=== PATIENT | male | born 1990 | race Caucasian/White ===

== ENCOUNTER 2020-02-13 18:15 | Emergency (ER) | payer OTHER, SELFPAY ==
[2020-02-13 18:29] VITALS: BP 134/96; PULSE 80; RESP 16; TEMP 36.8; O2SAT 98
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
== END 2020-02-13 19:15 | disposition home or self-care (01) ==
PROVIDERS: Emergency Provider Nurse Practitioner Family
DX: L24.2 Irritant contact dermatitis due to solvents (principal)
CPT/HCPCS: 99213; G0463

== ENCOUNTER 2020-02-15 12:35 | Emergency (ER) | payer OTHER, SELFPAY ==
[2020-02-15 13:28] VITALS: BP 128/91; PULSE 83; RESP 20; TEMP 36.7; O2SAT 98
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
== END 2020-02-15 14:48 | disposition home or self-care (01) ==
PROVIDERS: Emergency Provider Nurse Practitioner Family
DX: L25.9 Unspecified contact dermatitis, unspecified cause (principal)
CPT/HCPCS: 99211; G0463

== ENCOUNTER 2020-07-29 17:50 | Emergency (ER) | payer MEDICAID, SELFPAY ==
[2020-07-29 17:59] VITALS: BP 126/81; PULSE 88; RESP 20; TEMP 37; O2SAT 99
--- NOTE | 2020-07-29 18:00 | ED.EAR ---
HPI - Ear Problem General Chief complaint: Ear Stated complaint: left ear pain/pressure Time Seen by Provider: 07/29/20 18:00 Source: patient Mode of arrival: ambulatory Limitations: no limitations History of Present Illness HPI Narrative: Jarad Ruggiero is a 30 yo male with a hx of multiple strep throats comes to express care with c/o L ear pain and sore throat. No fever. Started last night; no fever. Has been working outside all day, is tachycardic and says is hydrated Denies nausea vomiting diarrhea, feeling fatigue or myalgias Related Data Allergies Allergy/AdvReac Type Severity Reaction Status Date / Time No Known Allergies Allergy Verified 07/29/20 18:01 Review of Systems Review of Systems: Narrative: CONSTITUTIONAL: Denies fever, chills, sweats. EYES: Denies visual changes, redness, discharge. ENT: Denies rhinorrhea, congestion, has sore throat, left otalgia. CARDIOVASCULAR: Denies chest pain, palpitations, edema. RESPIRATORY: Denies dyspnea, wheezing, cough GASTROINTESTINAL: Denies abdominal pain, nausea, vomiting, diarrhea. GENITOURINARY: Denies dysuria, hematuria, abnormal discharge SKIN: Denies rash or itching. NEUROLOGIC: Denies numbness, or focal weakness. PSYCHIATRIC: Denies anxiety or depression. PMFSH Past Medical History Medical History History of strep sore throat No significant past medical history Surgical History Surgical History History of tonsillectomy Family History Family History Mother Hypertension Social History Social History Smoking status: Never smoker Alcohol intake: never Substance use: never Gender identity (if verbalized by the patient): Male Comments At time of signature, I agree with nursing past medical, surgical, social and family history. There is no relevant family history pertinent to the presenting complaint. Exam Narrative: Exam Narrative: GENERAL: This is a well-nourished, well-developed patient, in mild distress. HEAD: normocephalic, atraumatic. EYES: Sclera clear/white. Vision is grossly intact. EARS: External ears normal, R auditory canal clear and without drainage, L canal erythema, TMs normal without perforation. Hearing grossly intact. NOSE: External nose normal without nasal discharge, nares with redness, no rhinorrhea. THROAT: Mucous membranes moist, posterior pharynx erythema NECK: Neck supple, n tender left down trachea CARDIOVASCULAR: Tachycardic rate and rhythm without murmurs, gallops, or rubs. RESPIRATORY: Clear to auscultation. Breath sounds equal bilaterally. No wheezes, rales, or rhonchi. GASTROINTESTINAL: Abdomen soft, non-tender, SKIN: warm, intact with no suspicious lesions or rash, good texture and turgor. NEURO: awake, alert, and oriented to person, place and time. There were no obvious focal neurologic abnormalities. Steady gait EXTREMITIES: Normal range of motion. BACK: Nontender without deformity Course Course Emergency Course: Strep test Started on ear drops, Zyrtec, prednisone. Follow-up with PCP Vital Signs Vital signs: Vital Signs Temperature 98.6 F 07/29/20 17:59 Pulse Rate 88 07/29/20 17:59 Respiratory Rate 07/29/20 17:59 Blood Pressure 126/81 07/29/20 17:59 Pulse Oximetry 99 07/29/20 17:59 Temperature 98.6 F 07/29/20 17:59 Pulse Rate 88 07/29/20 17:59 Respiratory Rate 07/29/20 17:59 Blood Pressure 126/81 07/29/20 17:59 Pulse Oximetry 99 07/29/20 17:59 Medical Decision Making Differential Diagnosis Differential Diagnosis: Strep versus pharyngitis versus left otitis media Vital Signs Vital Signs: Vital Signs Temperature 98.6 F 07/29/20 17:59 Pulse Rate 88 07/29/20 17:59 Respiratory Rate 07/29/20 17:59 Blood Pressure 126/81
== END 2020-07-29 18:22 | disposition home or self-care (01) ==
PROVIDERS: Emergency Provider Nurse Practitioner
DX: H66.002 Acute suppurative otitis media without spontaneous rupture of ear drum, left ear (principal); J02.9 Acute pharyngitis, unspecified
CPT/HCPCS: 87081; 87880; 99213; G0463

== ENCOUNTER 2021-04-16 08:39 | Emergency (ER) | payer OTHER, SELFPAY ==
--- NOTE | ~2021-04-16 | XR_ITS ---
XR abdomen/kub 1V DATE: 04/16/2021 09:39 INDICATION: Abdominal pain since 04/13/2021 TECHNIQUE: AP projection, 2 views COMPARISON: None FINDINGS: There is radiopaque material scattered within the normal size appendix and colon. There is no evidence of appendicitis or bowel obstruction. The psoas shadows are intact. No visceromegaly is evident. No significant abnormal calcification is n oted. Included skeletal structures are unremarkable. IMPRESSION: No significant abnormality Reviewed, dictated and finalized at [facility]. Reviewed, dictated and finalized at [facility]. IMPRESSION: No significant abnormality
[2021-04-16 08:44] VITALS: BP 127/97; PULSE 74; RESP 18; TEMP 36.6; O2SAT 100
--- NOTE | 2021-04-16 09:09 | ED.GENADULT ---
HPI - General Adult General Chief complaint: Abdominal Pain Stated complaint: abdominal pain Time Seen by Provider: 04/16/21 09:10 Source: patient and RN notes reviewed Mode of arrival: ambulatory Limitations: no limitations History of Present Illness HPI narrative: 31-year-old male presents with complaints of rectal bleeding, black tarry stools, and diffuse abdominal cramping for past 3 days. Jarad reports symptoms started on Friday, April 13, 2021 with daily increasing abdominal pain. Pepto-Bismol 2 tablets on Friday, April 16, 2021 approximate 13:30/20:00 without relief. Complains of 4-5 black tarry stools over the past 3 days. No bright red blood in toilet are on toilet paper after wiping. LMB today, black tarry stool. Denies foul smell. Denies diarrhea or constipation. Denies history of gastrointestinal bleeding, hemorrhoids, inflammatory bowel disease, or rectal polyps. Denies family history of rectal bleeding. Denies rectal pain or rectal trauma. Denies eating dark-colored foods, using iron supplement, fever, or weight loss, and tenesmus. Denies nausea or vomiting. Tolerating po intake well, last had solids on 04/15/21 approximate 18:00 and orange juice today approximate 07:40. Denies dysuria or hematuria. Remains active. The patient reports he have not been diagnosed with COVID-19. The patient reports he is not waiting for the results of a COVID-19 lab test. The patient reports he do not have chills, weakness, or fatigue. The patient reports he do not have a new or worsening cough or shortness of breath. Denies chest pain. The patient reports he do not have any rhinorrhea, congestion, loss of taste or smell, or sore throat. Denies recent traveling. Denies concerns for COVID-19 or exposures been home with limited outdoor exposure except for essential household needs and return home. At this time, patient is not suspected of having COVID-19. Some parts of this dictation were generated by voice recognition software and may contain typographical and/or grammatical inaccuracies. Related Data Home Medications Medication Instructions Recorded Confirmed No Home Medications 04/16/21 04/16/21 Allergies Allergy/AdvReac Type Severity Reaction Status Date / Time No Known Allergies Allergy Verified 04/16/21 09:05 Review of Systems Review of Systems: Narrative: CONSTITUTIONAL: Denies fever, chills, sweats. EYES: Denies visual changes, redness, discharge. ENT: Denies rhinorrhea, congestion, sore throat, otalgia. CARDIOVASCULAR: Denies chest pain, palpitations, edema. RESPIRATORY: Denies dyspnea, wheezing, cough. GASTROINTESTINAL: Complains of diffused abdominal pain, black tarry stools. Denies nausea, vomiting, diarrhea. GENITOURINARY: Denies dysuria, hematuria, abnormal discharge. SKIN: Denies rash or itching. MUSCULOSKELETAL: Denies acute back pain or myalgia. NEUROLOGIC: Denies numbness or focal weakness. PSYCHIATRIC: Denies anxiety or depression. All systems reviewed & are unremarkable except as noted in HPI and below. [facility] Past Medical History Medical History (Updated 04/17/21 @ 00:01 by Janett Mckenzie) History of strep sore throat No significant past medical history Surgical History Surgical History History of tonsillectomy Family History Family History Mother Hypertension Father Alive and well Social History Social History Smoking status: Never smoker Tobacco type: cigarettes Second hand tobacco smoke exposure: No Alcohol intake: former Alcohol use details: no beer in 3 months Substance use: never Living arrangements: with family Occupation/Education: unemployed Gender identity (if verbalized by the patient): Male Comments At time of signature, agree with nurse past medical, surgical, social, a
== END 2021-04-16 10:10 | disposition home or self-care (01) ==
PROVIDERS: Emergency Provider Nurse Practitioner Family
DX: K62.5 Hemorrhage of anus and rectum (principal); R10.30 Lower abdominal pain, unspecified
CPT/HCPCS: 74018; 99213; G0463

== ENCOUNTER 2021-07-24 08:21 | Emergency (ER) | payer OTHER, SELFPAY ==
[2021-07-24 08:26] VITALS: BP 131/94; PULSE 88; RESP 14; TEMP 36.7; O2SAT 98
--- NOTE | 2021-07-24 08:27 | ED.URI ---
HPI - URI/Sore Throat General Chief Complaint: Upper Respiratory Infection Stated Complaint: sore throat and ear pain Time Seen by Provider: 07/24/21 08:27 Source: patient and RN notes reviewed History of Present Illness HPI Narrative: Patient is a 31-year-old male who presents the urgent care with complaints of sore throat and bilateral ear pain since Friday. Patient has not taken anything [id number] for his symptoms or his pain. Denies of any known contact with strep or Covid. States that he has had his tonsils removed but has had strep yearly since then. Patient denies of any fever, chills, nausea, vomiting. No other acute complaints. No acute distress noted. Patient aware of the plan of care. Some parts of this dictation were generated by voice recognition software and may contain typographical and/or grammatical inaccuracies. Related Data Home Medications Medication Instructions Recorded Confirmed No Home Medications 04/16/21 07/24/21 Allergies Allergy/AdvReac Type Severity Reaction Status Date / Time No Known Allergies Allergy Verified 07/24/21 08:31 Review of Systems Review of Systems: CONSTITUTIONAL: Denies fever, chills, or sweats. EYES: Denies visual changes, redness, or discharge. ENT: reports of sore throat and bilateral otalgia. CARDIOVASCULAR: Denies chest pain, palpitations, or edema. RESPIRATORY: Denies cough or dyspnea. GASTROINTESTINAL: Denies abdominal pain, nausea, vomiting, or diarrhea. GENITOURINARY: Denies dysuria or hematuria. SKIN: Denies rash or itching. MUSCULOSKELETAL: Denies back pain, joint pain, or myalgia. NEUROLOGIC: Denies headache, numbness, or weakness. All other systems reviewed are negative, except as documented in HPI. [facility] Past Medical History Medical History (Updated 07/24/21 @ 08:46 by KATHIA Pratt) History of strep sore throat No significant past medical history Surgical History Surgical History History of tonsillectomy Family History Family History Mother Hypertension Father Alive and well Social History Social History Smoking status: Never smoker Tobacco type: cigarettes Second hand tobacco smoke exposure: No Alcohol intake: former Alcohol use details: no beer in 3 months Substance use: never Gender identity (if verbalized by the patient): Male Comments At the time of my signature, I reviewed and agree with the nursing past medical, surgical, social, and family history. There is no relevant family history pertinent to the patient complaint. Exam Narrative: GENERAL: This is a well-nourished, well-developed patient, in no apparent distress. HEAD: normocephalic, atraumatic. EYES: PERRL. Sclera clear/white. Vision is grossly intact. EARS: External ears normal, auditory canals clear and without drainage, TMs normal without perforation. Hearing grossly intact. NOSE: External nose normal with no obvious nasal discharge, nares without redness, no rhinorrhea. THROAT: Mucous membranes moist, posterior pharynx clear. mild post nasal drainage. Tonsils NECK: Neck supple, non-tender without lymphadenopathy CARDIOVASCULAR: Regular rate and rhythm without murmurs, gallops, or rubs. RESPIRATORY: Clear to auscultation. Breath sounds equal bilaterally. No wheezes, rales, or rhonchi. SKIN: warm, intact with no suspicious lesions or rash, good texture and turgor. NEURO: awake, alert, and oriented to person, place and time. There were no obvious focal neurologic abnormalities. EXTREMITIES: No clubbing, cyanosis, or edema. Course Vital Signs Vital signs: Vital Signs Temperature 98.1 F 07/24/21 08:26 Pulse Rate 88 07/24/21 08:26 Respiratory Rate 14 07/24/21 08:26 Blood Pressure 131/94 H 07/24/21 08:26 Pulse Oximetry 98 07/24/21 08:26 [place]
== END 2021-07-24 08:50 | disposition home or self-care (01) ==
PROVIDERS: Emergency Provider Nurse Practitioner Family
DX: J02.9 Acute pharyngitis, unspecified (principal)
CPT/HCPCS: 87081; 87880; 99213; G0463

== ENCOUNTER 2021-12-27 08:14 | Emergency (ER) | payer OTHER, SELFPAY ==
--- NOTE | 2021-12-27 08:20 | ED.URI ---
HPI - URI/Sore Throat General Chief Complaint: Upper Respiratory Infection Stated Complaint: sinus infection and sore throat Time Seen by Provider: 12/27/21 08:20 Source: patient and RN notes reviewed History of Present Illness HPI Narrative: Patient is a 31-year-old male who presents the urgent care with complaints of sinus congestion, sore throat and postnasal drainage. Patient states that it started 4 days ago. States that 3 days ago he had a negative Covid test when his symptoms started. Patient denies any fever, chills, nausea or vomiting. Denies of any known exposure to Covid. States that his father, whom he lived with as of this past week, was diagnosed with strep. No other acute complaints. No acute distress noted. Patient read the plan of care. Some parts of this dictation were generated by voice recognition software and may contain typographical and/or grammatical inaccuracies. Related Data Allergies Allergy/AdvReac Type Severity Reaction Status Date / Time No Known Allergies Allergy Verified 12/27/21 08:29 Review of Systems Review of Systems: CONSTITUTIONAL: Denies fever, chills, or sweats. EYES: Denies visual changes, redness, or discharge. ENT: Reports of postnasal drainage, sinus congestion and sore throat CARDIOVASCULAR: Denies chest pain, palpitations, or edema. RESPIRATORY: Denies cough or dyspnea. GASTROINTESTINAL: Denies abdominal pain, nausea, vomiting, or diarrhea. GENITOURINARY: Denies dysuria or hematuria. SKIN: Denies rash or itching. MUSCULOSKELETAL: Denies back pain, joint pain, or myalgia. NEUROLOGIC: Denies headache, numbness, or weakness. All other systems reviewed are negative, except as documented in HPI. [facility] Past Medical History Medical History (Updated 12/27/21 @ 08:35 by KATHIA Pratt) History of strep sore throat No significant past medical history Surgical History Surgical History History of tonsillectomy Family History Family History Mother Hypertension Father Alive and well Social History Social History Smoking status: Never smoker Tobacco type: cigarettes Second hand tobacco smoke exposure: No Alcohol intake: former Alcohol use details: no beer in 3 months Substance use: never Gender identity (if verbalized by the patient): Male Comments At the time of my signature, I reviewed and agree with the nursing past medical, surgical, social, and family history. There is no relevant family history pertinent to the patient complaint. Exam Narrative: GENERAL: This is a well-nourished, well-developed patient, in no apparent distress. HEAD: normocephalic, atraumatic. Frontal sinus tenderness EYES: PERRL. Sclera clear/white. Vision is grossly intact. EARS: External ears normal, auditory canals clear and without drainage, TMs normal without perforation. Hearing grossly intact. NOSE: External nose normal with no obvious nasal discharge, nares without redness, no rhinorrhea. THROAT: Mucous membranes moist. Moderate erythema noted to posterior pharynx with moderate postnasal drainage without exudate or ulceration NECK: Neck supple, non-tender without lymphadenopathy CARDIOVASCULAR: Regular rate and rhythm without murmurs, gallops, or rubs. RESPIRATORY: Clear to auscultation. Breath sounds equal bilaterally. No wheezes, rales, or rhonchi. SKIN: warm, intact with no suspicious lesions or rash, good texture and turgor. NEURO: awake, alert, and oriented to person, place and time. There were no obvious focal neurologic abnormalities. EXTREMITIES: No clubbing, cyanosis, or edema. Course Course Level of Care: Express Care Visit Vital Signs Vital signs: Vital Signs Temperature 99.4 F 12/27/21 08:23 Pulse Rate 99 12/27/21 08:23 Respiratory Rate 16 12/27/21 08:23 Blood Pressur
[2021-12-27 08:23] VITALS: BP 141/83; PULSE 99; RESP 16; TEMP 37.4; O2SAT 98
== END 2021-12-27 08:38 | disposition home or self-care (01) ==
PROVIDERS: Emergency Provider Nurse Practitioner Family; PCP Family Medicine
DX: J02.9 Acute pharyngitis, unspecified (principal); Z20.818 Contact with and (suspected) exposure to other bacterial communicable diseases
CPT/HCPCS: 99213; G0463

== ENCOUNTER 2022-02-14 13:56 | Outpatient (CLI) | payer OTHER, SELFPAY ==
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
[2022-02-14 18:53] LABS: Hematocrit 45.7 % (42.0-52.0); Mean Corpuscular HGB Conc 32.8 g/dl (32-36); Mean Corpuscular Hemoglobin 29.3 pg (26-34); Mean Corpuscular Volume 89.3 fl (80-100); Mean Platelet Volume 11.7 fl (7.4-10.4); Platelet Count Result 312 k/mm3 (150-375); Red Blood Count 5.12 M/mm3 (4.6-6.20); Red Cell Distribution Width 12.4 % (11.5-14.5); White Blood Count 7.8 K/mm3 (4.5-10.0)
[2022-02-14 19:10] LABS: Alanine Aminotransferase 47 U/L (4-50); Albumin Level 5.1 g/dL (3.5-5.1); Alkaline Phosphatase 76 U/L (38-126); Anion Gap 12 mmol/L (8-16); Aspartate Amino Transferase 42 U/L (17-59); Bilirubin,Total 0.7 mg/dL (0.2-1.3); Blood Urea Nitrogen 9 mg/dL (9-20); Calcium 9.9 mg/dL (8.4-10.2); Carbon Dioxide 28 mmol/L (22-30); Chloride 99 mmol/L (98-107); Cholesterol 210 mg/dL (0-200); Estimated Glomerular Filt Rate > 60; Glucose 95 mg/dL (65-110); HDL Direct 42 mg/dL; Sodium 139 mmol/L (137-145); Triglycerides 221 mg/dL (<150)
[2022-02-14 19:21] LABS: LDL Cholesterol Direct 125 mg/dL
== END 2022-02-14 13:57 | disposition home or self-care (01) ==
LOC: ANHBWCLAB 13:57
PROVIDERS: PCP Family Medicine; Visit Provider Family Medicine
DX: Z00.00 Encounter for general adult medical examination without abnormal findings (principal); Z79.2 Long term (current) use of antibiotics
CPT/HCPCS: 36415; 73010; 80053; 80061; 85027

== ENCOUNTER 2022-02-28 08:50 | Outpatient (CLI) | payer OTHER, SELFPAY ==
--- NOTE | ~2022-02-28 | XR_ITS ---
XR barium swallow w SBFT DATE: 02/28/2022 11:46 INDICATION: Long-term antibiotic use TECHNIQUE: Rapid sequence spot radiographs and overhead radiographs during oral ingestion of barium. Serial images of the abdomen for demonstration of the small bowel, with spot images of the terminal i leum 34.367 DAP 78 images 1 minute fluoroscopy time COMPARISON: None FINDINGS: There is normal deglutition and esophageal peristalsis. No stricture, mucosal fold thickeni ng, ulceration, diverticulum or intraluminal mass lesion of the esophagus is detected. No hiatal zuleima ia is demonstrated. Normal duodenal C-loop. No stricture, mucosal fold thickening, ulceration, diverticulum or intralumin al mass lesion of the small bowel is evident. The terminal ileum appears normal. IMPRESSION: Normal esophagus and small bowel Reviewed, dictated and finalized at Location A. Reviewed, dictated and finalized at location A.
--- NOTE | ~2022-02-28 | US_ITS ---
EXAMINATION: US soft tissue upper back DATE: 02/28/2022 09:15 INDICATION: Nodule along the spine of the right scapula with associated pain and numbness. TECHNIQUE: Multiple grayscale and Doppler ultrasound images of the right thorax of the region of conc kaden overlying the right scapula were obtained. COMPARISON: None FINDINGS: 2.8 x 1.4 x 2.3 cm hypoechoic lesion in the superficial subcutaneous tissues at the region of concern . There does appear to be posterior acoustic enhancement relative to the surrounding subcutaneous fat . No internal vascular flow identified and color Doppler. IMPRESSION: 1. Indeterminate 2.8 x 1.4 x 2.3 cm hypoechoic lesion in the subcutaneous fat, unclear whether solid or potentially complex cystic. Differential would include neoplasm either benign such as schwannoma/p eripheral nerve sheath tumor and lipoma or malignant. Could not exclude a complex cystic lesion sugge sting a epidermoid/sebaceous cyst. Could consider ultrasound-guided core needle biopsy for pathologic correlation. Reviewed, dictated and finalized at location A. IMPRESSION: 1. Indeterminate 2.8 x 1.4 x 2.3 cm hypoechoic lesion in the subcutaneous fat, unclear whether solid or potentially complex cystic. Differential would include neoplasm either benign such as schwannoma/peripheral nerve sheath tumor and li tess or malignant. Could not exclude a complex cystic lesion suggesting a epide rmoid/sebaceous cyst. Could consider ultrasound-guided core needle biopsy for p athologic correlation.
== END 2022-02-28 08:51 | disposition home or self-care (01) ==
LOC: ANHIMG 08:51
PROVIDERS: PCP Family Medicine; Visit Provider Family Medicine
DX: R22.2 Localized swelling, mass and lump, trunk (principal); M54.10 Radiculopathy, site unspecified; Z79.2 Long term (current) use of antibiotics
CPT/HCPCS: 73564; 74240; 76604

== ENCOUNTER 2022-02-28 14:24 | Outpatient (CLI) | payer OTHER, SELFPAY ==
--- NOTE | ~2022-02-28 | XR_ITS ---
XR knee LT min 4V DATE: 02/28/2022 14:39 INDICATION: Left knee pain after jumping off of a truck TECHNIQUE: 4 views COMPARISON: None FINDINGS: No fracture or dislocation or joint effusion. Joint spaces are well preserved. No radiopaqu e intra-articular loose body or chondrocalcinosis. No periosteal reaction or bone destruction. IMPRESSION: Negative Reviewed, dictated and finalized at location A. IMPRESSION: Negative
== END 2022-02-28 14:25 | disposition home or self-care (01) ==
LOC: ANHBWCIMG 14:25
PROVIDERS: PCP Family Medicine; Visit Provider Family Medicine
DX: M25.569 Pain in unspecified knee (principal)
CPT/HCPCS: 73564

== ENCOUNTER 2022-11-03 09:38 | Emergency (ER) | payer OTHER, SELFPAY ==
[2022-11-03 09:45] VITALS: BP 137/99; PULSE 90; RESP 16; TEMP 37.1; O2SAT 98
--- NOTE | 2022-11-03 09:46 | ED.URI ---
HPI - URI/Sore Throat General Chief Complaint: Upper Respiratory Infection Stated Complaint: congestion sinus pressure Time Seen by Provider: 11/03/22 09:46 Source: patient and RN notes reviewed History of Present Illness HPI Narrative: patient is a 32-year-old male who presents to the Urgent Care with complaints of sore throat, cough, sinus pressure /congestion. Patient states his symptoms started last Friday he began using cough drops. Denies any fevers, nausea, vomiting. No other acute complaints. No acute distress noted. Patient aware of the plan of care. Some parts of this dictation were generated by voice recognition software and may contain typographical and/or grammatical inaccuracies. Related Data Allergies Allergy/AdvReac Type Severity Reaction Status Date / Time No Known Allergies Allergy Verified 11/03/22 09:55 Review of Systems Review of Systems: CONSTITUTIONAL: Denies fever, chills, or sweats. EYES: Denies visual changes, redness, or discharge. ENT: Reports of congestion, sore throat CARDIOVASCULAR: Denies chest pain, palpitations, or edema. RESPIRATORY: reports of cough GASTROINTESTINAL: Denies abdominal pain, nausea, vomiting, or diarrhea. GENITOURINARY: Denies dysuria or hematuria. SKIN: Denies rash or itching. MUSCULOSKELETAL: Denies back pain, joint pain, or myalgia. NEUROLOGIC: Denies headache, numbness, or weakness. All other systems reviewed are negative, except as documented in HPI. [facility] Past Medical History Medical History History of strep sore throat Stomach ulcer Surgical History Surgical History H/O excision of mass exc of 2 cm back mass 04/05/22 History of tonsillectomy Family History Family History Mother Hypertension Father Alive and well Social History Social History (Updated 10/30/22 @ 10:22 by Laura Hernandez MA) Smoking status: Never smoker Second hand tobacco smoke exposure: No Alcohol intake: current Alcohol use details: rarely Substance use: never Substance use type: does not use Lack of Transportation: No Lack of Food: Never True Current Housing: I Have Housing Concerned About Future Housing: No Difficulty Paying Gas/Electric Bills: No Difficulty Paying for Meds: No Currently Unemployed: No Education: Associate Degree Difficulty w/ Childcare or Family Care: No 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 There is no relevant family history pertinent to the patient complaint. Exam Narrative: GENERAL: This is a well-nourished, well-developed patient, in no apparent distress. HEAD: normocephalic, atraumatic. EYES: PERRL. Sclera clear/white. Vision is grossly intact. EARS: External ears normal, auditory canals clear and without drainage, TMs normal without perforation. Hearing grossly intact. NOSE: External nose normal with no obvious nasal discharge, nares without redness, Clear rhinorrhea. THROAT: Mucous membranes moist, mild erythema to posterior oropharynx. Absent tonsils. Moderate postnasal drainage. NECK: Neck supple, non-tender without lymphadenopathy, masses or thyromegaly. CARDIOVASCULAR: Regular rate and rhythm without murmurs, gallops, or rubs. RESPIRATORY: Clear to auscultation. Breath sounds equal bilaterally. No wheezes, rales, or rhonchi. SKIN: warm, intact with no suspicious lesions or rash, good texture and turgor. NEURO: awake, alert, and oriented to person, place and time. There were no obvious focal neurologic abnormalities. EXTREMITIES: No clubbing, cyanosis, or edema. Course Course Level of Care: Express Care Visit Vital Signs Vi
== END 2022-11-03 10:00 | disposition home or self-care (01) ==
PROVIDERS: Emergency Provider Nurse Practitioner Family; PCP Family Medicine
DX: J00 Acute nasopharyngitis [common cold] (principal)
CPT/HCPCS: 87081; 99213; G0463

== ENCOUNTER 2023-01-03 10:15 | Outpatient (CLI) | payer OTHER, SELFPAY ==
[2023-01-03 18:47] LABS: Basophils Percent Auto 0.3 % (0.2-1.2); Eosinophils Absolute Auto 0.1 K/mm3 (0-0.3); Eosinophils Percent Auto 0.9 % (0-4.4); Hematocrit 45.9 % (42.0-52.0); Hemoglobin 15.1 g/dL (14.0-18.0); Mean Corpuscular HGB Conc 32.9 g/dl (32-36); Mean Corpuscular Volume 88.1 fl (80-100); Mean Platelet Volume 12.2 fl (7.4-10.4); Monocytes Absolute Auto 0.5 K/mm3 (0.1-0.6); Monocytes Percent Auto 7.7 % (2.6-8.5); Neutrophils Absolute Auto 3.7 K/mm3 (1.3-6.7); Neutrophils Percent Auto 57.1 % (45.5-73.1); Platelet Count Result 243 k/mm3 (150-375); Red Blood Count 5.21 M/mm3 (4.6-6.20); Red Cell Distribution Width 12.1 % (11.5-14.5); White Blood Count 6.5 K/mm3 (4.5-10.0)
[2023-01-03 18:50] LABS: Alanine Aminotransferase 41 U/L (6-50); Albumin Level 5.1 g/dL (3.5-5.1); Alkaline Phosphatase 72 U/L (38-126); Anion Gap 8 mmol/L (8-16); Aspartate Amino Transferase 37 U/L (17-59); Bilirubin,Total 0.6 mg/dL (0.2-1.3); Blood Urea Nitrogen 13 mg/dL (9-20); Calcium 9.1 mg/dL (8.4-10.2); Carbon Dioxide 30 mmol/L (22-30); Chloride 97 mmol/L (98-107); Cholesterol 210 mg/dL (0-200); Estimated Glomerular Filt Rate > 60; Glucose 94 mg/dL (65-110); HDL Direct 46 mg/dL; Potassium 4.5 mmol/L (3.4-5.0); Sodium 135 mmol/L (137-145); Triglycerides 128 mg/dL (<150)
[2023-01-03 19:01] LABS: LDL Cholesterol Direct 125 mg/dL
== END 2023-01-03 10:16 | disposition home or self-care (01) ==
LOC: ANHBWCLAB 10:16
PROVIDERS: PCP Family Medicine; Visit Provider Family Medicine
DX: Z00.00 Encounter for general adult medical examination without abnormal findings (principal); K27.9 Peptic ulcer, site unspecified, unspecified as acute or chronic, without hemorrhage or perforation
CPT/HCPCS: 36415; 80053; 80061; 82607; 85025

== ENCOUNTER 2024-02-11 15:42 | Emergency (ER) | payer OTHER, SELFPAY ==
[2024-02-11 15:48] VITALS: BP 131/90; PULSE 94; RESP 16; TEMP 36.6; O2SAT 100
--- NOTE | 2024-02-11 16:45 | ED.URI ---
HPI - URI/Sore Throat General Chief Complaint: Upper Respiratory Infection Stated Complaint: cough Source: patient, RN notes reviewed and old records reviewed Mode of arrival: ambulatory Limitations: no limitations History of Present Illness HPI Narrative: 33 year old male who presents to [facility] with complaints of dry cough for the past few months. Patient reports that he has not had any fevers, no sore throat, or any other symptoms of URI. patient reports that he was started on Lisinopril in October for hypertension. Patient reports that he does take medication for GERD daily. MD elicited complaint: cough Onset (ago): month(s) (few months) Able to tolerate fluids by mouth: Yes Treatments prior to arrival: other (cough drops) Related Data Allergies Allergy/AdvReac Type Severity Reaction Status Date / Time No Known Allergies Allergy Verified 08/26/23 07:52 Review of Systems Review of Systems: CONSTITUTIONAL: Denies malaise, chills, sweats, or fever. EYES: Denies visual changes, redness, or discharge. ENT: Reports no rhinorrhea, congestion, sinus pain, otalgia or sore throat. CARDIOVASCULAR: Denies chest pain, palpitations, or edema. RESPIRATORY: Reports dry cough.? Denies dyspnea. GASTROINTESTINAL: Denies abdominal pain, nausea, vomiting, diarrhea SKIN: Denies rash or itching. MUSCULOSKELETAL: Denies myalgia. NEUROLOGIC: Denies headache. All systems reviewed & are unremarkable except as noted in HPI and below PMFSH Past Medical History Medical History History of strep sore throat Stomach ulcer Surgical History Surgical History H/O excision of mass exc of 2 cm back mass 04/05/22 History of tonsillectomy Family History Family History Mother Hypertension Father Alive and well Social History Social History (Updated 08/26/23 @ 07:55 by Laura Hernandez MA) Smoking status: Never smoker Second hand tobacco smoke exposure: No Alcohol intake: current Alcohol use details: rarely Substance use: never Substance use type: does not use Lack of Transportation: No Lack of Food: Never True Current Housing: I Have Housing Concerned About Future Housing: No Difficulty Paying Gas/Electric Bills: No Difficulty Paying for Meds: No Currently Unemployed: No Education: Bachelor's Degree Difficulty w/ Childcare or Family Care: No Living arrangements: with family Occupation/Education: occupation 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 There is no relevant family history pertinent to the presenting complaint Exam Narrative: GENERAL: Well-appearing, well-nourished, and in no acute distress. HEAD: Normocephalic EYES: PERRLA, conjunctivae clear ENT: Nares clear, turbinates edematous and erythematous, clear discharge. Mucous membranes moist. TM pearly quarles with dull light reflex bilaterally; no tragal tenderness. Oropharynx erythematous without lesions. Tonsils not present and throat without exudate, no drooling, no hoarseness, no trismus, uvula midline. NECK: Supple. No lymphadenopathy CHEST: Clear to auscultation, breath sounds equal. No wheezing, rhonchi, rales, or stridor. No respiratory distress, speaks in full sentences. dry cough noted SAO2 100% on room air HEART: Regular rate and rhythm. No murmur heard. SKIN: Warm, dry, no rash. NEURO: Alert and oriented x3. PSYCH: Normal mood and affect Course Course Emergency Course: Patient is aware of diagnosis, understands and agrees to treatment plan.? Anticipatory guidance given.? Patient agrees to follow-up as directed and is aware of reasons
== END 2024-02-11 17:10 | disposition home or self-care (01) ==
PROVIDERS: Emergency Provider Registered Nurse; PCP Family Medicine
DX: R05.9 Cough, unspecified (principal)
CPT/HCPCS: 99213; G0463

== ENCOUNTER 2024-05-26 09:28 | Outpatient (CLI) | payer OTHER, SELFPAY ==
[2024-05-26 19:04] LABS: Hematocrit 45.2 % (42.0-52.0); Hemoglobin 14.7 g/dL (14.0-18.0); Mean Corpuscular HGB Conc 32.5 g/dl (32-36); Mean Corpuscular Hemoglobin 28.9 pg (26-34); Mean Platelet Volume 12.3 fl (7.4-10.4); Platelet Count Result 249 k/mm3 (150-375); Red Blood Count 5.08 M/mm3 (4.6-6.20); Red Cell Distribution Width 12.4 % (11.5-14.5); White Blood Count 6.8 K/mm3 (4.5-10.0)
[2024-05-26 19:18] LABS: Prothrombin Time 13.1 Seconds (11.1-14.7)
[2024-05-26 19:28] LABS: Alanine Aminotransferase 49 U/L (6-50); Albumin Level 4.8 g/dL (3.5-5.1); Alkaline Phosphatase 79 U/L (38-126); Anion Gap 9 mmol/L (4-12); Aspartate Amino Transferase 50 U/L (17-59); Bilirubin,Total 0.6 mg/dL (0.2-1.3); Blood Urea Nitrogen 16 mg/dL (9-20); Calcium 9.7 mg/dL (8.4-10.2); Carbon Dioxide 30 mmol/L (22-30); Chloride 101 mmol/L (98-107); Cholesterol 177 mg/dL (0-200); Estimated Glomerular Filt Rate > 60; Glucose 97 mg/dL (65-110); HDL Direct 33 mg/dL; Potassium 4.7 mmol/L (3.4-5.0); Sodium 140 mmol/L (137-145); Triglycerides 208 mg/dL (<150)
[2024-05-26 19:38] LABS: LDL Cholesterol Direct 110 mg/dL
== END 2024-05-26 09:29 | disposition home or self-care (01) ==
LOC: ANHBWCLAB 09:31
PROVIDERS: Family Medicine; PCP Nurse Practitioner Family; Visit Provider Nurse Practitioner Family
DX: R05.9 Cough, unspecified (principal); I10 Essential (primary) hypertension; R04.0 Epistaxis
CPT/HCPCS: 36415; 80053; 80061; 85027; 85610

== ENCOUNTER 2025-10-13 09:16 | Outpatient (CLI) | payer OTHER, SELFPAY ==
--- OUTSIDE RECORDS SUMMARY | 2025-10-13 09:44 | XMS_ITS | Clinical Summary ---
Author Organization [facility] Address [address] 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 This disclosure is being madepursuant to the Care Everywhere program and may not contain all information available regarding this patient. Last updated 18.[facility] Allergies No known active allergies Medications * Be aware that medications may not be up to date on this document. Alwaysverify current medications with the patient. fluticasone propionate (FLONASE) 50 MCG/ACT nasal spray Lindon 1 Lindon into each nostril 2 times daily 1 Bottle 02/16/2017 Active benzonatate (TESSALON) 200 MG capsule Take 1 Cap by mouth 3 times daily as needed for Cough 30 Cap 02/16/2017 Active Social History Tobacco Use Types Packs/Day Years Used Date Smoking Tobacco: Never Sex and Gender Information Value Date Recorded Sex Assigned at Not on file Legal Sex Male 11:18 AM CDT Gender Identity Not on file Sexual Orientation Not on file Last Filed Vital Signs Vital Sign Reading Time Taken Comments Blood Pressure 112/78 02/16/2017 11:50 AM CDT Pulse 85 02/16/2017 11:50 AM CDT Temperature 37 C (98.6 F) 02/16/2017 11:50 AM CDT Respiratory Rate - - Oxygen Saturation - - Inhaled Oxygen Concentration - - Weight 88.5 kg (195 lb) 02/16/2017 11:50 AM CDT Height 182.9 cm (6') 02/16/2017 11:50 AM CDT Body Mass Index 26.45 02/16/2017 11:50 AM CDT Plan of Treatment Health Maintenance Due Date Last Done Comments HIV SCREENING 2006 HEPATITIS C SCREENING 04/07/2009 DTAP/TDAP/TD VACCINES (1 - Tdap) 2010 HEPATITIS B VACCINE (1 of 3 - 19+ 3-dose series) 2010 HPV VACCINE (1 - 3-dose SCDM series) 2018 DEPRESSION SCREENING 12/01/2024 COVID-19 VACCINE (1 - 2023-2 5 season) 2025 INFLUENZA VACCINE (#1) 2025 ZOSTER VACCINE (1 of 2) 2041 HIB VACCINE Aged Out No longer eligi ble based on patient's age to complete this topic MENINGOCOCCAL (Group B) VACC INE SHARED DECISION-MAKING Aged Out No longer eligibl e based on patient's age to complete this topic MENINGOCOCCAL GROUPS A/C/Y/W VACCINE Aged Out No longer eligible b ased on patient's age to complete this topic PNEUMOCOCCAL VACCINE Aged Out No long er eligible based on patient's age to complete this topic [place] [facility] [place]: [facility] [id number] [place] [address] [facility]
[2025-10-13 19:03] LABS: Hematocrit 48.4 % (42.0-52.0); Hemoglobin 15.5 g/dL (14.0-18.0); Mean Corpuscular HGB Conc 32.0 g/dl (32-36); Mean Corpuscular Hemoglobin 28.2 pg (26-34); Mean Corpuscular Volume 88.2 fl (80-100); Platelet Count Result 257 k/mm3 (150-375); Red Blood Count 5.49 M/mm3 (4.6-6.20); White Blood Count 7.7 K/mm3 (4.5-10.0)
[2025-10-13 19:18] LABS: Alanine Aminotransferase 57 U/L (6-50); Albumin Level 4.8 g/dL (3.5-5.1); Alkaline Phosphatase 84 U/L (38-126); Anion Gap 9 mmol/L (4-12); Aspartate Amino Transferase 81 U/L (17-59); Bilirubin,Total 0.7 mg/dL (0.2-1.3); Blood Urea Nitrogen 14 mg/dL (9-20); Calcium 9.6 mg/dL (8.4-10.2); Carbon Dioxide 28 mmol/L (22-30); Chloride 101 mmol/L (98-107); Cholesterol 212 mg/dL (0-200); Estimated Glomerular Filt Rate > 60; Glucose 99 mg/dL (65-110); HDL Direct 36 mg/dL; Magnesium 2.3 mg/dL (1.6-2.3); Potassium 4.7 mmol/L (3.4-5.0); Sodium 138 mmol/L (137-145); Total Protein 8.3 g/dL (6.3-8.2); Triglycerides 258 mg/dL (<150)
[2025-10-13 19:21] LABS: Iron 124 ug/dL (49-181)
[2025-10-13 19:35] LABS: Percent Iron Saturation 35 % (20-50)
[2025-10-13 20:01] LABS: Ferritin 91.10 ng/mL (17.9-464)
[2025-10-13 20:29] LABS: Vitamin B12 509.0 pg/mL (239-931)
[2025-10-13 22:09] LABS: Hemoglobin A1C 5.5 % (<5.7)
== END 2025-10-13 09:17 | disposition home or self-care (01) ==
LOC: ANHBWCLAB 09:16
PROVIDERS: PCP Nurse Practitioner Family; Visit Provider Nurse Practitioner Family
DX: G56.90 Unspecified mononeuropathy of unspecified upper limb (principal); K27.9 Peptic ulcer, site unspecified, unspecified as acute or chronic, without hemorrhage or perforation; E66.3 Overweight; I10 Essential (primary) hypertension; Z13.220 Encounter for screening for lipoid disorders; Z79.899 Other long term (current) drug therapy; Z13.1 Encounter for screening for diabetes mellitus
CPT/HCPCS: 36415; 80053; 80061; 82607; 82728; 82746; 83036; 83540; 83550; 83735; 85027